=== PATIENT | female | born 1940 | race Caucasian/White ===

== ENCOUNTER → 2017-02-19 | Outpatient (CLI) | payer MEDICARE ==
[2017-02-19 13:35] LABS: HEMATOCRIT 43.6 % (35.0-46.0); MEAN CELL VOLUME 88.2 FL (80.0-100.0); MEAN CORPUSCULAR HEMOGLOBIN 29.4 PG (27.0-34.0); MEAN CORPUSCULAR HGB CONC 33.4 % (32.0-36.0); PLATELET COUNT 166 TH/MM3 (150-450); RED BLOOD COUNT 4.94 MIL/MM3 (4.00-5.30); RED CELL DISTRIBUTION WIDTH 13.7 % (11.6-17.2); REVIEW FLAG FINAL; WHITE BLOOD COUNT 4.4 TH/MM3 (4.0-11.0)
[2017-02-19 13:36] LABS: ANION GAP 5 MEQ/L (5-15); AST (GOT) 29 U/L (15-37); BICARBONATE 28.5 MEQ/L (21.0-32.0); BLOOD UREA NITROGEN 14 MG/DL (7-18); CHLORIDE 108 MEQ/L (98-107); GLOMERULAR FILTRATION RATE 74 ML/MIN (>89); GLUCOSE,FASTING 90 MG/DL (74-99); SODIUM (NA) 141 MEQ/L (136-145)
[2017-02-19 13:37] LABS: ALT (GPT) 33 U/L (10-53)
[2017-02-19 13:46] LABS: ALKALINE PHOSPHATASE 101 U/L (45-117); HDL CHOLESTEROL 67.9 MG/DL (40.0-60.0); LDL CHOLESTEROL 177 MG/DL (0-99); LDL CHOLESTEROL DIRECT 181 MG/DL (0-99); TOTAL BILIRUBIN ADULT 0.4 MG/DL (0.2-1.0)
== END ==
LOC: PLAB 08:20
PROVIDERS: ATTEND Family Medicine
DX: R53.83 Other fatigue (principal); E78.4 Other hyperlipidemia; M85.80 Other specified disorders of bone density and structure, unspecified site; R19.7 Diarrhea, unspecified
CPT/HCPCS: 36415; 80053; 80061; 83721; 84443; 85027

== ENCOUNTER → 2017-05-17 | Outpatient (CLI) | payer MEDICARE ==
[2017-05-17 14:13] LABS: HEMATOCRIT 36.6 % (35.0-46.0); HEMOGLOBIN 12.4 GM/DL (11.6-15.3); MEAN CELL VOLUME 85.4 FL (80.0-100.0); MEAN CORPUSCULAR HEMOGLOBIN 28.8 PG (27.0-34.0); MEAN CORPUSCULAR HGB CONC 33.8 % (32.0-36.0); MEAN PLATELET VOLUME 8.8 FL (7.0-11.0); PLATELET COUNT 223 TH/MM3 (150-450); RED BLOOD COUNT 4.28 MIL/MM3 (4.00-5.30); RED CELL DISTRIBUTION WIDTH 13.2 % (11.6-17.2); WHITE BLOOD COUNT 11.4 TH/MM3 (4.0-11.0)
== END ==
LOC: PLAB 09:53
PROVIDERS: ATTEND Family Medicine
DX: R53.83 Other fatigue (principal)
CPT/HCPCS: 36415; 85027

== ENCOUNTER → 2017-06-13 | Day surgery (SDC) | payer MEDICARE ==
[~2017-06-13] VITALS: Ht 162.6 cm; Wt 57.7 kg
[~2017-06-13] MED LIST: ALPH0.1S EACH EYE; CARV3.12 PO; CHLORHEXIDINE GLUCONATE 2 % 1 PACK (2 CLOTHS) TOPICAL PRN; DIPH25CA PO; DORZ2SOL15 EACH EYE; HYDR-3516 PO; LACTATED RINGER'S 1000 ML IV PRN; METOPROLOL TARTRATE 25 MG TAB PO PRN; OCUVTAB PO; OMEGCAP PO; POVIDONE IODINE 5% (ANTISEPSIS KIT) 4 APPLICATIONS EACH NARE PRN; PRAV20TA2 PO; SODIUM CHLORID 0.9% 500 ML IV PRN
[2017-06-13 14:25] VITALS: BP 159/86; PULSE 65; RESP 20; TEMP 97.6; O2SAT 100
[2017-06-13 16:12] LABS: AUTOMATED NEUTROPHIL # 3.2 TH/MM3 (1.8-7.7); BASOPHIL % 0.8 % (0.0-2.0); EOSINOPHIL # 0.3 TH/MM3 (0-0.4); EOSINOPHIL % 4.3 % (0.0-4.0); HEMATOCRIT 41.6 % (35.0-46.0); HEMOGLOBIN 13.7 GM/DL (11.6-15.3); LYMPH % 23.8 % (9.0-44.0); LYMPHOCYTE # 1.4 TH/MM3 (1.0-4.8); MEAN CELL VOLUME 85.7 FL (80.0-100.0); MEAN CORPUSCULAR HEMOGLOBIN 28.3 PG (27.0-34.0); MEAN PLATELET VOLUME 9.6 FL (7.0-11.0); MONO % 16.1 % (0.0-8.0); MONOCYTE # 0.9 TH/MM3 (0-0.9); PLATELET COUNT 158 TH/MM3 (150-450); RED BLOOD COUNT 4.85 MIL/MM3 (4.00-5.30); RED CELL DISTRIBUTION WIDTH 14.5 % (11.6-17.2); WHITE BLOOD COUNT 5.8 TH/MM3 (4.0-11.0)
[2017-06-13 16:24] LABS: ALKALINE PHOSPHATASE 143 U/L (45-117); TOTAL BILIRUBIN ADULT 0.4 MG/DL (0.2-1.0); TOTAL PROTEIN 7.3 GM/DL (6.4-8.2)
[2017-06-13 16:47] LABS: ALBUMIN 3.3 GM/DL (3.4-5.0); ALT (GPT) 28 U/L (10-53); AST (GOT) 37 U/L (15-37); BICARBONATE 26.6 MEQ/L (21.0-32.0); BLOOD UREA NITROGEN 11 MG/DL (7-18); CALCIUM 8.8 MG/DL (8.5-10.1); CHLORIDE 106 MEQ/L (98-107); CREATININE 0.67 MG/DL (0.50-1.00); GLOMERULAR FILTRATION RATE 85 ML/MIN (>89); GLUCOSE,RANDOM 67 MG/DL (74-106); SODIUM (NA) 140 MEQ/L (136-145)
--- NOTE | 2017-06-13 20:16 | EKG ---
Date Performed: 06/13/2017 Time Performed: 14:10:55 PTAGE: 77 years EKG: ATRIAL FIBRILLATION LEFT AXIS DEVIATION MINIMAL VOLTAGE CRITERIA FOR LVH, CONSIDER NORMAL V ARIANT ABNORMAL ECG NO PREVIOUS TRACING DOCTOR: Jerry Chacko Interpretating Date/Time 06/13/2017 20:14:27
== END | disposition home or self-care (01) ==
LOC: HSDC 12:01
PROVIDERS: ATTEND Orthopaedic Surgery
DX: S52.501A Unspecified fracture of the lower end of right radius, initial encounter for closed fracture (principal); I48.91 Unspecified atrial fibrillation; Z53.09 Procedure and treatment not carried out because of other contraindication
CPT/HCPCS: 80053; 85025; 93005; G0463; J7120; 99211

== ENCOUNTER → 2017-06-19 | Day surgery (SDC) | payer MEDICARE ==
[~2017-06-19] VITALS: Ht 162.6 cm; Wt 57.3 kg
[~2017-06-19] MED LIST changes: +ACETAMINOPHEN 1000 MG/100 ML 100 ML IV ONE; +ACETAMINOPHEN/HYDROcodone 325 MG/5 MG TAB PO PRN; +ALPHAGAN P 0.1% EACH EYE SCH; +CARVEDILOL 3.125 MG TAB PO SCH; +CHLORHEXIDINE GLUCONATE 4% SOLN 120 ML BTL TOPICAL SCH; +DORZOLAMIDE/TIMOLOL OPTH SOLN 10 ML BTL EACH EYE SCH; +FAMOTIDINE 20 MG/2 ML VIAL IV PUSH ONE; +FAMOTIDINE 20 MG/2 ML VIAL ONE; +INSULIN HUMAN REGULAR 1,000 UNITS/10 ML VIAL SQ PRN; +LACTATED RINGER'S 1000 ML INJ 1,000 ML IV SCH; +LIDOCAINE HCL 1% PF 5 ML SYRINGE OTHER ONE; +MIDAZOLAM HCL 2 MG/2 ML VIAL IV PUSH ONE; +MIDAZOLAM HCL 2 MG/2 ML VIAL ONE; +MORPHINE SULFATE 4 MG/ML INJ IV PUSH PRN; +MULTIVITAMIN-OPHTHALMIC 1 TAB PO SCH; +NON-FORMULARY DRUG (Fish Oil-Cholecalciferol (Omega-3 Fish Oil/Vitamin) 1 CAP) PO SCH; +ONDANSETRON HCL 4 MG/2 ML VIAL IV PUSH PRN; +PRAVASTATIN SOD 20 MG TAB PO SCH; +PROPOFOL 500 MG/50 ML INJ 50 ML ONE; +ROPIVACAINE 1% PF INJ 20 ML AMP ONE; +ceFAZolin 2 GM in NS 100 ML IV SCH; +diphenhydrAMINE HCL 25 MG CAP PO PRN; +ePHEDrine/NS 25 MG/5 ML SYRINGE IV ONE
--- NOTE | 2017-06-19 13:51 | MH ---
cc: Terrell Finn MD DATE OF ADMISSION: 06/19/2017 ADMITTING DIAGNOSIS: Extraarticular displaced fracture of the distal right radius. PAST HISTORY: No significant medical problems other than some high blood pressure. She uses several eyedrops. NO ALLERGIES. HISTORY OF PRESENT ILLNESS: She was playing tennis and she moved back a little bit for a hard hit ball and lost her balance and fell backwards on an outstretched right hand for which she was evaluated and [facility] and put in a Velcro splint and referred to outpatient care. I saw her last week and brought her here for surgery, but surgery was canceled because of EKG abnormalities and since then she was put in touch with Dr. Valdez who has worked her up and cleared her for surgery. PHYSICAL EXAMINATION: GENERAL: This morning reveals a 77-year-old healthy appearing white female who has already received an axillary block. 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 I am not able to check her neurological status today, but previous examination last week to be satisfactory neurovascular status of the right hand. HEART: Regular rhythm, no murmurs. LUNGS: Clear to auscultation. ABDOMEN: Soft and supple. PLAN: The diagnosis, the treatment, the prognosis and the potential risks, hazards, complications including hardware related problems discussed. Informed consent has been obtained. No guarantees made. Terrell Finn MD SS/TL , 01:32 PM , 01:50 PM
[2017-06-19 13:55] VITALS: BP 152/85; PULSE 58; RESP 20; TEMP 97.5; O2SAT 96
--- NOTE | 2017-06-19 14:03 | MP ---
cc: Terrell Finn MD DATE OF OPERATION: 06/19/2017 PREOPERATIVE DIAGNOSIS: Displaced extraarticular fracture, right distal radius. DISCHARGE DIAGNOSIS: Displaced extraarticular fracture, right distal radius. OPERATIVE PROCEDURE: Open reduction, internal fixation with a volar locking plate, fracture displaced right distal radius. SURGEON: Dr. Finn. ANESTHESIA: Axillary block. PROCEDURE: After induction of axillary block anesthesia, the patient was brought to the operating room where she was positioned appropriately. Right upper extremity was prepped with ChloraPrep and draped in routine fashion. After application of Esmarch bandage, tourniquet inflated to 250 mmHg. A volar approach was used centered on the flexor carpi radialis tendon, deepened down to the tendon followed by retraction of the tendon to the ulnar side and dissection carried out between the outer radial border of the tendon sheath and the radial blood vessels. A subperiosteal dissection of the distal radius was carried out, elevating the pronator quadratus. Brachioradialis insertion to the radial styloid was released. Fracture was reduced by using a dental pick and distracting the fracture and then displacing it in a volar direction getting anatomical reduction as confirmed with fluoroscopic imaging. A locking plate was then applied with 4 distal locking screws and 2 nonlocking bicortical proximal screws. Final fluoroscopic images revealed good position and alignment and fixation. Final images saved for record keeping. Tourniquet was released. Hemostasis obtained with cautery. Wound was closed in a single layer of skin and subcutaneous tissue with interrupted 3-0 nylon vertical mattress sutures. Dressings were applied with Xeroform, 4 x 4s and soft roll and a sugar-tong splint applied with fiberglass splint, secured with Rohith and Fitz bandage. The patient transferred to same day surgery. DISCHARGE CONDITION: Satisfactory. PROGNOSIS: Good. ESTIMATED BLOOD LOSS: 10 mL Terrell Finn MD SS/TL , 01:35 PM , 02:02 PM
--- NOTE | 2017-06-19 14:06 | RADRPT ---
EXAM DATE/TIME: 06/19/2017 12:38 [facility] COMPARISON: No previous studies available for comparison. INDICATIONS : ORIF right wrist fracture. MEDICAL HISTORY : Unobtainable. SURGICAL HISTORY : Unobtainable. ENCOUNTER: Initial ACUITY: 1 day PAIN SCORE: Non-responsive. LOCATION: Right wrist. FINDINGS: Anatomic alignment. Plate in good position. CONCLUSION: Anatomic alignment. Omero Garrido MD FACR on June 19, 2017 at 14:03 Board Certified Radiologist. This report was verified electronically.
--- NOTE | 2017-06-19 20:58 | EKG ---
Date Performed: 06/19/2017 Time Performed: 09:03:02 PTAGE: 77 years EKG: SINUS BRADYCARDIA ABNORMAL ECG PREVIOUS TRACING : 06/13/2017 14.10 Since the previous tracing, no significant change noted DOCTOR: Ankit Barreto Interpretating Date/Time 06/19/2017 20:57:07
== END | disposition home or self-care (01) ==
LOC: HSDC 08:18
PROVIDERS: ATTEND Orthopaedic Surgery
DX: S52.501A Unspecified fracture of the lower end of right radius, initial encounter for closed fracture (principal); Y93.73 Activity, racquet and hand sports; W18.30XA Fall on same level, unspecified, initial encounter; Y92.838 Other recreation area as the place of occurrence of the external cause; Z01.810 Encounter for preprocedural cardiovascular examination
CPT/HCPCS: 01830; 25607; 64415; 73100; 76000; 93005; C1713; J0131; J0690; J2250; J2795; J3010; J7120